=== PATIENT | male | born 1990 | race Hispanic/Latino ===

== ENCOUNTER 2018-08-07 17:00 | Emergency (ER) | payer OTHER ==
[2018-08-07] MEDS ORDERED: TETANUS/DIPHTHERIA TOXOID [ADULT] 0.5 ML VIAL IM ONE (17:35)
[2018-08-07] MEDS ORDERED: IBUPROFEN 600 MG TABLET ONE (17:35)
== END 2018-08-07 17:51 | disposition home or self-care (01) ==
LOC: EDH 17:00
DX: T23.222A Burn of second degree of single left finger (nail) except thumb, initial encounter (principal); T31.0 Burns involving less than 10% of body surface; X19.XXXA Contact with other heat and hot substances, initial encounter; Y93.89 Activity, other specified; Y92.098 Other place in other non-institutional residence as the place of occurrence of the external cause; Y99.8 Other external cause status
CPT/HCPCS: 16020; 90471; 90714

== ENCOUNTER 2019-02-26 16:08 | Emergency (ER) | payer OTHER ==
[2019-02-26] MEDS ORDERED: IBUPROFEN 600 MG TABLET ONE (16:21)
== END 2019-02-26 16:31 | disposition home or self-care (01) ==
LOC: EDH 16:08
DX: H66.91 Otitis media, unspecified, right ear (principal)

== ENCOUNTER 2020-11-28 16:15 | Emergency (ER) | payer OTHER ==
[~2020-11-28] VITALS: Ht 170.2 cm; Wt 100.7 kg
[2020-11-28 16:15] VITALS: BP 149/112
[2020-11-28] MEDS ORDERED: IBUP-1552 PO (17:14)
[2020-11-28] MEDS ORDERED: CLIN300C10 PO (17:14)
[2020-11-28] MEDS ORDERED: IBUPROFEN 800 MG TAB PO ONE (17:30)
[2020-11-28] MEDS ORDERED: CLINDAMYCIN 150 MG CAP PO ONE (17:30)
== END 2020-11-28 17:22 | disposition home or self-care (01) ==
LOC: EDH 16:15
DX: K08.89 Other specified disorders of teeth and supporting structures (principal); K13.79 Other lesions of oral mucosa; Z79.1 Long term (current) use of non-steroidal anti-inflammatories (NSAID)